=== PATIENT | female | born 1950 | race Caucasian/White ===

== ENCOUNTER 2018-05-09 13:26 | Inpatient (IN) | payer MEDICARE, OTHER ==
[~2018-05-09] VITALS: Ht 165.1 cm; Wt 112.7 kg
--- NOTE | ~2018-05-09 | EC ---
PATIENT:EVA SILVER DATE OF SERVICE: 05/11/18 SEX: F MEDICAL RECORD: [id number] DATE OF : 54 LOCATION:D.M2 D.213 AGE OF PATIENT: 67 ADMISSION DATE: 05/11/18 REFERRING PHYSICIAN: INTERPRETING PHYSICIAN: OXANA OLIVARES MD ECHOCARDIOGRAM REPORT ECHO CHARGES 4 ECHO COMPLETE Date: 05/10 CLINICAL DIAGNOSIS: TIA ECHOCARDIOGRAPHIC MEASUREMENTS (adult normal given) AC root (d.<3.7cm) 4.2 cm LV Septum d (<1.2 cm> 1.3 cm Valve Excursion 1.8 cm LV Septum (systole) 1.5 cm Left Atria (s.<4.0cm> 3.1 cm LVPW d(<1.2cm) 1.5 cm RV (d.<2.3cm) cm LVPW (sytole) 1.8 cm LV diastole(<5.6CM) 4.8 cm MV E-F(>70mm/sec) cm LV systole 3.8 cm LVOT Diameter 1.8 cm MV exc.(>10mm) 1.6 cm Est.ejection fraction (50-75%) % DOPPLER: LVIT cm/sec A 41.0 cm/sec E 64.0 cm/sec LA cm/sec RVSP 17 mmHg LVOT 88 cm/sec AOP1/2T m/s Asc. Ao 107 cm/sec RVOT 75 cm/sec RA cm/sec PA 101 cm/sec AV Gradient Peak 4.56 mmHg AV Mean 2.45 mmHg AV Area 1.9 cm MV Gradient Peak 2.87 mmHg MV Mean 1.28 mmHg MV Area cm COMMENTS: Edger Automatic: 2 MICKY RODRIGUEZ Technician Biological Health: 3 Dr. Mc TAPE# PACS Pericardial Effusion N DATE OF SERVICE: ECHOCARDIOGRAM FINDINGS: 1. Left ventricular chamber size is within normal limits. Left ventricular systolic function is normal. Overall ejection fraction is estimated at 60%. 2. Left atrium is within normal limits at 3.1 cm. Right atrium and right ventricular chamber sizes are mildly dilated. 3. Valvular structures have normal structure and motion. ECHOCARDIOGRAM REPORT [id number] EVA SILVER 4. Doppler interrogation reveals no significant valvular insufficiency or stenosis. 5. No evidence of pericardial effusion or left ventricular thrombus. 6. No cardiac source of neurologic emboli. TRANSINT:[id number] Voice Confirmation ID: [id number] DOCUMENT ID: [id number] OXANA OLIVARES MD at 1642 CC: [id number] DICTATION DATE: 05/25/18 1155 PARTY PLAN SALESPERSON: 05/25/18 1307 DIS IN 05/12/18 [place] [id number] [place] [id number]
--- NOTE | ~2018-05-09 | MORECARE ---
CASE MANAGEMENT DISCHARGE SUMMARY PATIENT: EVA SILVER UNIT: [id number] ADM DATE: 05/11/18 AGE: 67 : 52 SEX: F [facility] AUTHOR: CASE, HAIRSPRING TRUING INSPECTOR PHYSICIAN: REFERRING PHYSICIAN: SUDEEP MCCLENDON MD DATE OF SERVICE: 05/11/18 Discharge Plan Patient Name: EVA SILVER Facility: [facility]:[place] : 1950 Planned Disposition: Home Anticipated Discharge Date: 05/12/18 Discharge Date: Expected LOS: 1 Initial Reviewer: [email or web address] Initial Review Date: 05/12/2018 Generated: 05/12/18 2:15 pm Patient Name: EVA SILVER Page [id number] All edits/amendments must be made on the electronic document DICTATION DATE: 05/12/18 1315 CUSTOMS IMPORT SPECIALIST: 05/12/18 1315 RPT#: [id number] [place] DATE: STATUS: ADM IN [facility] [address] [place] [address] END OF REPORT
[~2018-05-09 13:26] MED LIST: AMBIEN10 MG PO; CARAFATE1 G PO; NEXIUM20 MG PO; NORVASC2.5 MG PO; PLAVIX75 MG PO
[2018-05-09 14:46] LABS: ALBUMIN 3.3 g/dL (3.4-5.0); ALKALINE PHOSPHATASE 79 U/L (46-116); ALT (SGPT) 20 U/L (10-68); BILIRUBIN - TOTAL 0.58 mg/dL (0.2-1.3); CALC OSMOLALITY 276 mosm/kg (275-300); CALCIUM 8.6 mg/dL (8.5-10.1); CARBON DIOXIDE 28.3 mmol/L (21.0-32.0); CHLORIDE - SERUM 104 mmol/L (98-107); CREATININE - SERUM 0.8 mg/dL (0.6-1.3); GLUCOSE 101 mg/dL (74-106); POTASSIUM - SERUM 3.7 mmol/L (3.5-5.1); PROTEIN - SERUM 6.6 g/dL (6.4-8.2); SODIUM 138 mmol/L (136-145); UREA NITROGEN 15 mg/dL (7-18); eGFR NON AFRICAN AMERICAN 76 mL/min (90-120)
[2018-05-09 14:50] LABS: BASOPHILS 0.8 % (0-2); EOSINOPHILS 2.9 % (0-7); HEMOGLOBIN 12.5 g/dL (12-16); IMMATURE GRANULOCYTES 0.2 % (0-5); LYMPHOCYTES 27.7 % (15-50); MCH 28.5 pg (26.0-34.0); MCHC 32.9 g/dL (31.0-37.0); MCV 86.8 fL (80.0-100.0); MEAN PLATELET VOLUME 9.3 fL (7.4-10.4); MONOCYTES 6.2 % (2-11); NEUTROPHILS 62.2 % (40-80); PLATELET COUNT 222 10x3/uL (130-400); RBC 4.38 10x6/uL (4.00-5.40); WBC 5.1 10x3/uL (4.8-10.8)
[2018-05-09 14:54] LABS: APTT 27.6 SECONDS (22.8-39.4); INR 1.06 (0.85-1.17); PROTIME 13.4 SECONDS (11.6-15.0)
[2018-05-09 14:58] LABS: THYROID STIMULATING HORMONE 3.06 uIU/mL (0.36-3.74)
[2018-05-09 14:59] LABS: TROPONIN-I < 0.017 ng/mL (0.000-0.060)
[2018-05-09 15:42] LABS: APPEARANCE CLEAR (CLEAR); BILIRUBIN NEGATIVE (NEGATIVE); COLOR YELLOW (YELLOW); GLUCOSE NEGATIVE (NEGATIVE); KETONE NEGATIVE (NEGATIVE); NITRITE NEGATIVE (NEGATIVE); PROTEIN NEGATIVE (NEGATIVE); UROBILINOGEN NORMAL (NORMAL)
[2018-05-09 15:51] LABS: UDS - AMPHET NEGATIVE QUAL (NEGATIVE); UDS - BARB NEGATIVE QUAL (NEGATIVE); UDS - BENZO NEGATIVE QUAL (NEGATIVE); UDS - COCAINE NEGATIVE QUAL (NEGATIVE); UDS - OPIATE POSITIVE QUAL (NEGATIVE); UDS - PCP NEGATIVE QUAL (NEGATIVE); UDS - THC NEGATIVE QUAL (NEGATIVE)
[2018-05-09 20:00] VITALS: BP 123/77
[2018-05-09 22:39] VITALS: BP 128/76
[2018-05-09] MEDS ORDERED: ZOLOFT100 MG PO (22:56)
[2018-05-09] MEDS ORDERED: PAXIL30 MG PO (22:57)
[2018-05-09] MEDS ORDERED: ELAVIL25 MG PO (22:57)
[2018-05-09] MEDS ORDERED: NORCO 7.5/325 T1 TA1 PO (23:02)
[2018-05-10] VITALS (7 sets, daily range): BP systolic 99–144; BP diastolic 47–69; Ht 165.1 cm; Wt 112.7 kg
[2018-05-10] MEDS ORDERED: SYNTHROID150 MCG PO (13:31)
[2018-05-10 16:48] LABS: ERYTHROCYTE SEDIMENTATION RATE 11 mm/hr (0-30)
[2018-05-11 04:30] VITALS: BP 100/66
[2018-05-11 08:55] VITALS: BP 109/71
[2018-05-11 13:25] VITALS: BP 102/67
[2018-05-11 16:11] VITALS: BP 100/69
[2018-05-11 21:54] VITALS: BP 111/75
[2018-05-12 02:13] VITALS: BP 100/65
[2018-05-12 05:26] VITALS: BP 100/62
[2018-05-12 06:24] LABS: BASOPHILS 0.7 % (0-2); EOSINOPHILS 3.9 % (0-7); HEMATOCRIT 35.7 % (36.0-48.0); HEMOGLOBIN 11.7 g/dL (12-16); IMMATURE GRANULOCYTES 0.4 % (0-5); LYMPHOCYTES 33.3 % (15-50); MCH 28.6 pg (26.0-34.0); MCHC 32.8 g/dL (31.0-37.0); MCV 87.3 fL (80.0-100.0); MEAN PLATELET VOLUME 9.4 fL (7.4-10.4); MONOCYTES 6.1 % (2-11); NEUTROPHILS 55.6 % (40-80); PLATELET COUNT 206 10x3/uL (130-400); RBC 4.09 10x6/uL (4.00-5.40); RDW 14.3 % (11.5-14.5); WBC 6.7 10x3/uL (4.8-10.8)
[2018-05-12 06:44] LABS: ANION GAP 9.1 mmol/L (8-16); CALCIUM 8.4 mg/dL (8.5-10.1); CARBON DIOXIDE 27.9 mmol/L (21.0-32.0); CREATININE - SERUM 0.9 mg/dL (0.6-1.3)
[2018-05-12 10:10] VITALS: BP 119/66
[2018-05-12] MEDS ORDERED: CLEOCIN HCL300 MG PO (11:50)
[2018-05-12] MEDS ORDERED: FLORAJEN3 CAPS460 MG PO (11:51)
== END 2018-05-12 13:24 | disposition home or self-care (01) | DRG 74 ==
LOC: D.ER 13:26 → D.M2 20:55 → OBSVTIME 20:55 → D.M2 05-11 12:54
PROVIDERS: Family Medicine; Internal Medicine Nephrology
DX: G51.0 Bell's palsy (principal); K04.7 Periapical abscess without sinus; I10 Essential (primary) hypertension; E03.9 Hypothyroidism, unspecified

== ENCOUNTER 2018-05-16 15:02 | Emergency (ER) | payer MEDICARE, OTHER ==
[~2018-05-16] VITALS: Ht 165.1 cm; Wt 112.3 kg
[~2018-05-16 15:02] MED LIST changes: +CLEOCIN HCL300 MG PO; +ELAVIL25 MG PO; +FLORAJEN3 CAPS460 MG PO; +NORCO 7.5/325 T1 TA1 PO; +PAXIL30 MG PO; +SYNTHROID150 MCG PO; +ZOLOFT100 MG PO
[2018-05-16 15:17] VITALS: Ht 165.1 cm; Wt 112.3 kg
[2018-05-16 15:45] LABS: BASOPHILS 0.8 % (0-2); EOSINOPHILS 3.6 % (0-7); HEMATOCRIT 39.1 % (36.0-48.0); HEMOGLOBIN 12.8 g/dL (12-16); IMMATURE GRANULOCYTES 0.3 % (0-5); LYMPHOCYTES 31.1 % (15-50); MCH 28.3 pg (26.0-34.0); MCHC 32.7 g/dL (31.0-37.0); MCV 86.3 fL (80.0-100.0); MONOCYTES 7.9 % (2-11); NEUTROPHILS 56.3 % (40-80); PLATELET COUNT 243 10x3/uL (130-400); RBC 4.53 10x6/uL (4.00-5.40); RDW 14.2 % (11.5-14.5); WBC 6.3 10x3/uL (4.8-10.8)
[2018-05-16 16:23] LABS: ALBUMIN 3.4 g/dL (3.4-5.0); ANION GAP 9.5 mmol/L (8-16); BILIRUBIN - TOTAL 0.54 mg/dL (0.2-1.3); CALCIUM 8.9 mg/dL (8.5-10.1); CARBON DIOXIDE 28.8 mmol/L (21.0-32.0); CREATININE - SERUM 0.9 mg/dL (0.6-1.3); POTASSIUM - SERUM 4.3 mmol/L (3.5-5.1); PROTEIN - SERUM 7.1 g/dL (6.4-8.2)
[2018-05-16 16:34] LABS: THYROID STIMULATING HORMONE 7.79 uIU/mL (0.36-3.74)
[2018-05-16] MEDS ORDERED: ANAPROX DS550 MG PO (21:52)
[2018-05-16] MEDS ORDERED: HYDROCODONE-APA1 TAB PO (22:48)
[2018-05-16 23:18] VITALS: BP 108/64
== END 2018-05-16 23:18 | disposition home or self-care (01) ==
LOC: D.ER 15:02
PROVIDERS: Family Medicine
DX: S02.5XXA Fracture of tooth (traumatic), initial encounter for closed fracture (principal); X58.XXXA Exposure to other specified factors, initial encounter; Y93.89 Activity, other specified; Y92.019 Unspecified place in single-family (private) house as the place of occurrence of the external cause; K08.89 Other specified disorders of teeth and supporting structures; M54.2 Cervicalgia; Z79.899 Other long term (current) drug therapy

== ENCOUNTER → 2018-12-30 09:20 | Outpatient (CLI) | payer MEDICARE, OTHER ==
[2018-05-16 15:17] VITALS: BMI 41.1
[~2018-12-30 09:20] MED LIST changes: +ANAPROX DS550 MG PO; +HYDROCODONE-APA1 TAB PO
== END | disposition home or self-care (01) ==
LOC: D.RAD 09:20
PROVIDERS: ATTEND Internal Medicine Gastroenterology
DX: R13.10 Dysphagia, unspecified (principal)

== ENCOUNTER → 2019-01-23 12:48 | Outpatient (CLI) | payer MEDICARE, OTHER ==
[2018-05-16 15:17] VITALS: BMI 41.1
== END | disposition home or self-care (01) ==
LOC: D.CT 12:48
PROVIDERS: ATTEND Internal Medicine Gastroenterology
DX: R13.10 Dysphagia, unspecified (principal); R63.4 Abnormal weight loss; E04.1 Nontoxic single thyroid nodule

== ENCOUNTER 2019-03-13 12:57 | Emergency (ER) | payer MEDICARE, OTHER ==
[2019-03-13 13:10] VITALS: BMI 37.3
[2019-03-13 13:38] LABS: BASOPHILS 0.8 % (0-2); EOSINOPHILS 2.9 % (0-7); HEMATOCRIT 38.2 % (36.0-48.0); HEMOGLOBIN 12.3 g/dL (12-16); IMMATURE GRANULOCYTES 0.3 % (0-5); LYMPHOCYTES 26.5 % (15-50); MCH 25.5 pg (26.0-34.0); MCHC 32.2 g/dL (31.0-37.0); MCV 79.3 fL (80.0-100.0); MEAN PLATELET VOLUME 8.8 fL (7.4-10.4); MONOCYTES 6.9 % (2-11); NEUTROPHILS 62.6 % (40-80); PLATELET COUNT 254 10x3/uL (130-400); RBC 4.82 10x6/uL (4.00-5.40); RDW 16.5 % (11.5-14.5); WBC 9.1 10x3/uL (4.8-10.8)
[2019-03-13 13:51] LABS: ALBUMIN 3.5 g/dL (3.4-5.0); ALKALINE PHOSPHATASE 83 U/L (46-116); ALT (SGPT) 19 U/L (10-68); BILIRUBIN - TOTAL 0.49 mg/dL (0.2-1.3); CALC OSMOLALITY 279 mosm/kg (275-300); CALCIUM 8.9 mg/dL (8.5-10.1); CARBON DIOXIDE 28.8 mmol/L (21.0-32.0); CHLORIDE - SERUM 104 mmol/L (98-107); CREATININE - SERUM 0.9 mg/dL (0.6-1.3); GLUCOSE 95 mg/dL (74-106); POTASSIUM - SERUM 3.7 mmol/L (3.5-5.1); SODIUM 140 mmol/L (136-145); UREA NITROGEN 15 mg/dL (7-18); eGFR NON AFRICAN AMERICAN 66 mL/min (90-120)
[2019-03-13 14:02] LABS: CKMB 1.3 U/L (0.0-3.6); CREATINE KINASE 90 UL (21-215); MAGNESIUM - SERUM 1.8 mg/dL (1.8-2.4)
[2019-03-13 14:03] LABS: TROPONIN-I < 0.017 ng/mL (0.000-0.060)
[2019-03-13 14:22] LABS: APTT 28.5 SECONDS (22.8-39.4); INR 1.05 (0.85-1.17); PROTIME 13.2 SECONDS (11.6-15.0)
[2019-03-13 14:50] VITALS: BP 108/67
== END 2019-03-13 15:23 | disposition left against medical advice (07) ==
LOC: D.ER 12:57
PROVIDERS: Emergency Medicine
DX: R07.9 Chest pain, unspecified (principal)

== ENCOUNTER 2019-05-24 11:24 | Emergency (ER) | payer MEDICARE, OTHER ==
[~2019-05-24] VITALS: Ht 165.1 cm; Wt 93.2 kg
[2019-05-24 11:39] VITALS: Ht 165.1 cm; Wt 93.2 kg
[2019-05-24 12:35] LABS: APPEARANCE CLOUDY (CLEAR); BILIRUBIN NEGATIVE (NEGATIVE); COLOR YELLOW (YELLOW); GLUCOSE NEGATIVE (NEGATIVE); KETONE NEGATIVE (NEGATIVE); NITRITE NEGATIVE (NEGATIVE); PROTEIN TRACE mg/dL (NEGATIVE); UROBILINOGEN NORMAL (NORMAL)
[2019-05-24 12:37] LABS: BACTERIA MANY /hpf (NONE SEEN); EPITHELIAL CELLS 0-5 /hpf (0-5); RED CELLS - URINE NONE SEEN /hpf (0-5)
[2019-05-24 12:45] LABS: BASOPHILS 0.4 % (0-2); EOSINOPHILS 3.1 % (0-7); HEMATOCRIT 36.6 % (36.0-48.0); HEMOGLOBIN 12.2 g/dL (12-16); IMMATURE GRANULOCYTES 0.2 % (0-5); LYMPHOCYTES 27.7 % (15-50); MCH 26.5 pg (26.0-34.0); MCHC 33.3 g/dL (31.0-37.0); MCV 79.6 fL (80.0-100.0); MONOCYTES 7.4 % (2-11); NEUTROPHILS 61.2 % (40-80); PLATELET COUNT 243 10x3/uL (130-400); RDW 16.4 % (11.5-14.5); WBC 5.5 10x3/uL (4.8-10.8)
[2019-05-24 13:01] LABS: APTT 28.6 SECONDS (22.8-39.4); INR 1.04 (0.85-1.17); PROTIME 13.1 SECONDS (11.6-15.0)
[2019-05-24 13:03] LABS: ALBUMIN 3.1 g/dL (3.4-5.0); ALKALINE PHOSPHATASE 71 U/L (46-116); ALT (SGPT) 16 U/L (10-68); BILIRUBIN - TOTAL 0.32 mg/dL (0.2-1.3); CALC OSMOLALITY 280 mosm/kg (275-300); CALCIUM 8.9 mg/dL (8.5-10.1); CARBON DIOXIDE 27.4 mmol/L (21.0-32.0); CHLORIDE - SERUM 106 mmol/L (98-107); CREATININE - SERUM 0.8 mg/dL (0.6-1.3); GLUCOSE 90 mg/dL (74-106); POTASSIUM - SERUM 3.8 mmol/L (3.5-5.1); PROTEIN - SERUM 6.3 g/dL (6.4-8.2); SODIUM 141 mmol/L (136-145); UREA NITROGEN 13 mg/dL (7-18); eGFR NON AFRICAN AMERICAN 76 mL/min (90-120)
[2019-05-24 13:13] LABS: AMYLASE - SERUM 33 U/L (25-115); CKMB 0.7 U/L (0.0-3.6); LIPASE 56 U/L (73-393); TROPONIN-I < 0.017 ng/mL (0.000-0.060)
[2019-05-24 15:24] LABS: CKMB 0.5 U/L (0.0-3.6); CREATINE KINASE 45 UL (21-215)
[2019-05-24 15:27] LABS: TROPONIN-I < 0.017 ng/mL (0.000-0.060)
[2019-05-24] MEDS ORDERED: MACROBID100 MG PO (16:49)
[2019-05-24] MEDS ORDERED: CARAFATE1 G PO (16:51)
[2019-05-24 17:33] VITALS: BP 101/60
== END 2019-05-24 17:34 | disposition home or self-care (01) ==
LOC: D.ER 11:24
PROVIDERS: Family Medicine
DX: K21.9 Gastro-esophageal reflux disease without esophagitis (principal)

== ENCOUNTER → 2019-05-27 07:26 | Outpatient (CLI) | payer MEDICARE, OTHER ==
[2019-05-24 11:39] VITALS: BMI 34.1
[~2019-05-27 07:26] MED LIST changes: +GOLYTELY SOLU4000 ML PO; +KEFLEX500 MG PO; +MACROBID100 MG PO; +ZOFRAN ODT4 MG/UDTAB PO
== END | disposition home or self-care (01) ==
LOC: D.RAD 07:26
PROVIDERS: ATTEND Internal Medicine Gastroenterology
DX: R10.9 Unspecified abdominal pain (principal)

== ENCOUNTER 2019-05-27 08:15 | Emergency (ER) | payer MEDICARE, OTHER ==
[~2019-05-27] VITALS: Ht 165.1 cm; Wt 93.2 kg
[~2019-05-27 08:15] MED LIST changes: -GOLYTELY SOLU4000 ML PO; -KEFLEX500 MG PO; -ZOFRAN ODT4 MG/UDTAB PO
[2019-05-27 08:21] VITALS: Ht 165.1 cm; Wt 93.2 kg
[2019-05-27 08:55] LABS: BASOPHILS 0.8 % (0-2); EOSINOPHILS 3.4 % (0-7); HEMATOCRIT 41.8 % (36.0-48.0); HEMOGLOBIN 13.9 g/dL (12-16); IMMATURE GRANULOCYTES 0.3 % (0-5); LYMPHOCYTES 22.2 % (15-50); MCH 26.3 pg (26.0-34.0); MCHC 33.3 g/dL (31.0-37.0); MEAN PLATELET VOLUME 8.8 fL (7.4-10.4); MONOCYTES 6.8 % (2-11); NEUTROPHILS 66.5 % (40-80); PLATELET COUNT 264 10x3/uL (130-400); RBC 5.29 10x6/uL (4.00-5.40); RDW 16.1 % (11.5-14.5); WBC 7.6 10x3/uL (4.8-10.8)
[2019-05-27 09:11] LABS: ALBUMIN 3.7 g/dL (3.4-5.0); ALKALINE PHOSPHATASE 84 U/L (46-116); ALT (SGPT) 17 U/L (10-68); BILIRUBIN - TOTAL 0.39 mg/dL (0.2-1.3); CALC OSMOLALITY 276 mosm/kg (275-300); CALCIUM 9.9 mg/dL (8.5-10.1); CARBON DIOXIDE 27.5 mmol/L (21.0-32.0); CHLORIDE - SERUM 103 mmol/L (98-107); CREATININE - SERUM 0.9 mg/dL (0.6-1.3); GLUCOSE 119 mg/dL (74-106); PROTEIN - SERUM 7.6 g/dL (6.4-8.2); SODIUM 139 mmol/L (136-145); UREA NITROGEN 8 mg/dL (7-18); eGFR NON AFRICAN AMERICAN 66 mL/min (90-120)
[2019-05-27 09:14] LABS: AMYLASE - SERUM 34 U/L (25-115); LIPASE 57 U/L (73-393)
[2019-05-27 09:15] LABS: TROPONIN-I < 0.017 ng/mL (0.000-0.060)
[2019-05-27 10:41] LABS: APPEARANCE HAZY (CLEAR); BACTERIA FEW /hpf (NONE SEEN); BILIRUBIN NEGATIVE (NEGATIVE); COLOR YELLOW (YELLOW); EPITHELIAL CELLS OCC /hpf (0-5); GLUCOSE NEGATIVE (NEGATIVE); KETONE NEGATIVE (NEGATIVE); MUCUS <1+ /lpf (NONE SEEN); NITRITE NEGATIVE (NEGATIVE); PROTEIN NEGATIVE (NEGATIVE); RED CELLS - URINE RARE /hpf (0-5); SPECIFIC GRAVITY 1.015 (1.005-1.020); UROBILINOGEN NORMAL (NORMAL); WHITE CELLS - URINE 0-5 /hpf (0-5)
[2019-05-27] MEDS ORDERED: ZOFRAN ODT4 MG/UDTAB PO (12:07)
[2019-05-27] MEDS ORDERED: GOLYTELY SOLU4000 ML PO (12:07)
[2019-05-27] MEDS ORDERED: KEFLEX500 MG PO (12:09)
[2019-05-27 12:39] VITALS: BP 101/66
== END 2019-05-27 12:38 | disposition home or self-care (01) ==
LOC: D.ER 08:15
PROVIDERS: Family Medicine
DX: R10.9 Unspecified abdominal pain (principal); K59.00 Constipation, unspecified; R11.2 Nausea with vomiting, unspecified

== ENCOUNTER → 2019-06-04 10:56 | Outpatient (CLI) | payer MEDICARE, OTHER ==
[2019-05-27 08:21] VITALS: BMI 34.1
[~2019-06-04 10:56] MED LIST changes: +GOLYTELY SOLU4000 ML PO; +KEFLEX500 MG PO; +ZOFRAN ODT4 MG/UDTAB PO
== END | disposition home or self-care (01) ==
LOC: D.MRI 10:56
PROVIDERS: ATTEND Family Medicine
DX: M51.16 Intervertebral disc disorders with radiculopathy, lumbar region (principal)

== ENCOUNTER → 2019-06-17 12:09 | Outpatient (CLI) | payer MEDICARE, OTHER ==
[2019-05-27 08:21] VITALS: BMI 34.1
== END | disposition home or self-care (01) ==
LOC: D.MRI 12:00
PROVIDERS: ATTEND Family Medicine
DX: M25.561 Pain in right knee (principal)

== ENCOUNTER → 2019-08-18 08:12 | Outpatient (CLI) | payer MEDICARE, OTHER ==
[2019-05-27 08:21] VITALS: BMI 34.1
== END | disposition home or self-care (01) ==
LOC: D.MRI 08:12
PROVIDERS: ATTEND Nurse Practitioner Family
DX: M51.36 Other intervertebral disc degeneration, lumbar region (principal)

== ENCOUNTER 2019-10-12 08:41 | Outpatient (CLI) | payer MEDICARE, OTHER ==
[~2019-10-12] VITALS: Ht 165.1 cm; Wt 88.5 kg
--- NOTE | ~2019-10-12 | HEMODYNAMI ---
PATIENT:EVA SILVER MEDICAL RECORD: [id number] : 54 LOCATION:[facility] ADMISSION DATE: 10/12/19 Generatedon:10/12/201912:56 Patient name: EVA SILVER Patient #: [id number] SSN: : 1950 Date of study: 10/12/2019 Page: Of Hemodynamic Procedure Report Patient Data Patient Demographics Procedure consent was obtained First Name: EVA Gender: Female Last Name: ADRIANNE : 1950 Middle Initial: PADILLA Age: 68 year(s) Patient #: [id number] Race: Unknown Additional ID: [id number] Contact details [address]: [address] [place] [address] [address] State: [place] City: [place] Zip code: [address] Past Medical History Allergies Allergen Reaction Date Comments Reported Other allergy 03/30/2015 Zoloft (Generic only) Admission Admission Data Admission Date: 10/12/2019 Admission Time: 8:41 Arrival Date: 10/12/2019 Arrival Time: 8:41 Admit Source: Emergency Insurance Payor: Medicare department [facility] #: [id number] Height (in.): 64.96 BSA: 1.95 (m2) Height (cm.): 165 BMI: 32.32 (kg/m2) Weight (lbs.): 194.01 Weight (kg.): 88 Lab Results Lab Result Date: 10/12/2019 Lab Result Time: 0:00 Biochemistry Name Units Result Min Max BUN mg/dl 17 --(---*)-- 7 18 Creatinine mg/dl 0.9 --(-*--)-- 0.6 1.3 eGFR ml/min 66 *-(----)-- 90 120 NONAFRICAN CBC Name Units Result Min Max Hemoglobin g/dl 12.1 *-(----)-- 13.5 17.5 Procedure Procedure Types Cath Procedure Diagnostic Procedure [facility] w/Coronaries Procedure Description Procedure Date Procedure Date: 10/12/2019 Procedure Start Time: 12:47 Procedure End Time: 12:55 Procedure Staff Name Function David Montez MD Performing Physician Marla Bui RT Monitor Karlene Luna RT Scrub Mir Queen RN Nurse Procedure Data Cath Procedure Fluoroscopy Diagnostic fluoroscopy Total fluoroscopy Time: 0.8 time: 0.8 min min Diagnostic fluoroscopy Total fluoroscopy dose: 290 dose: 290 mGy mGy Contrast Material Contrast Material Type Amount (ml) Isovue 300 54 Entry Location Entry Primary Successful Side Size Upsize Upsize Entry Closure Succes sful Closure Location (Fr) 1 (Fr) 2 (Fr) Remarks Device Remarks Femoral Right 5 Fr Exoseal artery Estimated blood loss: 5 ml Diagnostic catheters Device Type Used For End Catheter Placement MULTIPACK Pigtail 5 Fr Procedure catheter MULTIPACK JL 4.0 5Fr Procedure catheter MULTIPACK 3DRC 5Fr Procedure catheter Procedure Complications No complications Procedure Medications Medication Administration Route Dosage 0.9% NaCl I.V. 100 ml/hr Oxygen etCO2 Nasal cannula 2 l/min Heparin Flush Bag added to field 2 bags (1000units/500ml NS) Lidocaine 2% added to field 20 Benadryl I.V. 50 mg Versed I.V. 2 mg Fentanyl I.V. 100 mcg Hemodynamics Rest BSA: 1.95 (m2) HGB: 12.1 (g/dl) O2 Consumption: Estimated: 184.41 (ml/min) O2 Co nsumption indexed: Estimated:94.57 (ml/min/m) Heart Rate: 74 (bpm) Snapshots Pre Cath Intra NCS Post Cath Vital Signs Time Heart Resp SPO2 etCO2 NIBP (mmHg) Rhythm Pain Sedation Rate (ipm) (%) (mmHg) Status Level (bpm) 12:39:37 71 13 100 36 108/77(96) NSR 0 (11) 10(A) , No pain 12:43:45 76 10 98 42 99/68(79) NSR 0 (11) 10(A) , No pain 12:47:44 84 12 99 24.7 113/79(101) NSR 0 (11) 10(A) , No pain 12:51:50 88 18 96 42 107/76(87) NSR 0 (11) 10(A) , No pain Medications Time Medication Route Dose Verified Delivered Reason Notes Eff ectiveness by by 12:43:12 0.9% NaCl I.V. 100 Mir Mir Per ml/hr Bernice Queen physician RN RN 12:43:21 Oxygen etCO2 2 Mir Mir for low 02 Nasal l/min Lorcarmine Queen sats cannula RN RN 12:43:31 Heparin Flush added 2 Mir Mir used for Bag to bags Bernice Queen procedure (1000units/500ml field RN RN NS) 12:43:40 Lidocaine 2% added 20ml Mir Mir for local to vial Lorigan Lorigan anesthetic field RN RN 12:43:50 Benadryl I.V. 50 mg Mir Mir Per Bernice Queen physician RN RN 12:49:11 Versed I.V. 2 mg Mir Mir for Lorigan Lorigan sedation RN RN 12:49:18 Fentanyl I.V. 100 Mir Mir for mcg Lorigan Lorigan sedation RN tank truck driver Log Time Note 12:13:52 Diagnostic Cath Status : Urgent 12:14:27 Lab Result : eGFR NONAFRICAN 66 ml/min 12:14:27 Lab Result : Hemoglobin 12.1 g/dl 12:14:27 Lab Result : BUN 17 mg/dl 12:14:27 Lab Result : Creatinine 0.9 mg/dl 12:14:43 Admit Source: Emergency department 12:14:44 Arrival Date: 10/12/2019 8:41:00 AM 12:15:19 Insurance Payor : Medicare 12:15:27 Patient Height : 64.96 inches 12:15:33 Patient Weight : 194.01 lbs 12:20:00 Procedure Status Urgent Heart Cath (IP). 12:20:02 Mir Queen RN sent for patient. Start room use. 12:20:03 Time tracking: Regular hours (M-F 7:00 - 5:00) 12:20:07 Plan of Care:Hemodynamics will remain stable., Cardiac rhythm will remain stable., Comfort level will be maintained., Respiratory function will remain adequate., Patient/ family verbilizes understanding of procedure., Procedure tolerated without complication., Recovers from procedure without complications.. 12:26:10 Patient received from ED to [facility] 2 Alert and oriented. Tansferred to table in Supine position. 12:26:12 Signed procedure consent form obtained from patient. 12:26:13 Warm blankets applied, and bárbara hugger turned on for patient comfort. 12:26:14 Correct patient and procedure confirmed by team. 12:26:14 ECG and BP/O2 sat monitors applied to patient. 12:38:37 Vital chart was started 12:38:38 Baseline sample Acquired. 12:43:12 0.9% NaCl 100 ml/hr I.V. was administered by Mir Qeuen RN; Per physician; Verbal order read back and verified. 12:43:21 Oxygen 2 l/min etCO2 Nasal cannula was administered by Mir Queen RN; for low 02 sats; Verbal order read back and verified. 12:43:31 Heparin Flush Bag (1000units/500ml NS) 2 bags added to field was administered by Mir Queen RN; used for procedure; Verbal order read back and verified. 12:43:40 Lidocaine 2% 20ml vial added to field was administered by Mir Queen RN; for local anesthetic; Verbal order read back and verified. 12:43:50 Benadryl 50 mg I.V. was administered by Mir Queen RN; Per physician; Verbal order read back and verified. 12:44:08 Baseline sample Acquired. 12:44:12 Rhythm: sinus rhythm 12:44:14 Full Disclosure recording started 12:44:24 H&P Date Dictated: 10/12/2019 Emergent; H&P N/A. 12:44:26 Pre-procedure instructions explained to patient. 12:44:28 Family in waiting room. 12:44:30 Patient NPO since Midnight. 12:44:36 Was the patient premedicated? Yes 12:44:40 Is patient on blood thinner?No 12:44:43 Patient diabetic? No. 12:44:53 Previous problem with sedation/anesthesia? Yes angry 12:45:15 Snore? No 12:45:26 Dentures? No out 12:45:35 Patient pain scale 0/10 ?. 12:45:45 IV patent on arrival in left forearm with 0.9% NaCl at [facility]. 12:45:49 Lab results completed and on chart. 12:45:56 Stress Test: no; abnormal ? 12:46:01 Risk of Mortality: 1.1 12:46:04 Risk of blood transfusion: .8 12:46:07 Risk of ISHA: 7.0 12:46:10 Right groin area was prepped with chlora-prep and draped in sterile fashion 12:46:11 Alarms reviewed by R. N. 12:46:12 Sharps counted by scrub and verified by R.N. 12:46:13 Physician paged 12:46:14 Physician arrived 12:46:15 --------ALL STOP TIME OUT------ 12:46:15 Final Timeout: patient, procedure, and site verified with staff and physician. All members of the team are in agreement. 12:46:18 Right groin site verified by team. 12:46:23 Fire Safety Assessment: A--An alcohol-based skin anteseptic being used preoperatively., C--Open oxygen or nitrous oxide is being used., D--An ESU, laser, or fiber-optic light is being used. 12:46:26 Physical assessment completed. ASA score P 3 - A patient with severe systemic disease as per David Montez MD. 12:47:18 2) 60-89 Mildly reduced kidney function, and other findings (as for stage 1) point to kidney disease. 12:47:22 Maximum allowable contrast dose (3.7 X eGFR X 0.75)183 ml. 12:47:26 Sedation plan: IV Moderate Sedation Medication:Versed, Fentanyl 12:47:33 Use device set Femoral Dx 12:47:37 Procedure started. 12:47:57 Local anesthetic to right femoral artery with Lidocaine 2% by David Montez MD.INITIAL ACCESS ONLY 12:47:58 ACIST Syringe (64700) opened to sterile field. 12:47:58 Bag Decanter (2002S) opened to sterile field. 12:47:59 Medline Cath Pack ([id number]) opened to sterile field. 12:48:00 ACIST Hand Control (12454) opened to sterile field. 12:48:00 ACIST Manifold (98488) opened to sterile field. 12:48:01 DIAGNOSTIC Multipack 5Fr catheter set (CO3012) opened to sterile field. 12:48:02 Tegaderm 4 x 4 (1626W) opened to sterile field. 12:48:03 SHEATH 5FR Bokoshe (BOY112) opened to sterile field. 12:48:04 EMERALD Guide Wire (443-471) opened to sterile field. 12:49:11 Versed 2 mg I.V. was administered by Mir Queen RN; for sedation; Verbal order read back and verified. 12:49:13 A 5 Fr sheath was inserted into the Right Femoral artery 12:49:18 Fentanyl 100 mcg I.V. was administered by Mir Queen RN; for sedation; Verbal order read back and verified. 12:49:25 J wire advanced. 12:51:32 A MULTIPACK Pigtail 5 Fr catheter was advanced over the wire and used for Procedure. 12:51:50 EF : 55 % 12:51:54 Catheter removed. 12:52:00 A MULTIPACK JL 4.0 5Fr catheter was advanced over the wire and used for Procedure. 12:52:05 LCA angiography performed. 12:52:09 Catheter removed. 12:52:16 A MULTIPACK 3DRC 5Fr catheter was advanced over the wire and used for Procedure. 12:52:23 RCA angiography performed. 12:52:25 Catheter removed. 12:52:28 EXOSEAL 5Fr (EX500) opened to sterile field. 12:52:55 Sheath removed intact; hemostasis achieved with Exoseal to the Right Femoral artery. 12:52:58 Procedure ended.(Physican Out) 12:53:10 Fluoroscopy time 00.80 minutes. 12:53:21 Flurop Dose total: 290 12:53:21 Fluoroscopy dose: 290 mGy 12:53:26 Dose Area Product 96326 mGy/cm. 12:53:30 Contrast amount:Isovue 300 54ml. 12:53:37 Maximum allowable dose exceeded? No. 12:53:40 Sharps counted by scrub and verified by R.N. 12:53:44 Insertion/operative site no bleeding no hematoma. 12:53:58 Post right femoral artery:stable 12:53:59 Post Procedure Pulses reassessed and unchanged 12:54:03 Post-procedure physical assessment completed. ASA score P 3 - A patient with severe systemic disease as per David Montez MD. 12:54:06 Post procedure rhythm: unchanged. 12:54:08 Estimated blood loss: 5 ml 12:54:10 Post procedure instruction explained to patient.Patient verbalizes understanding. 12:54:31 Procedure and supply charges have been captured, reviewed, submitted and are correct. 12:54:51 Procedure Complication : No complications 12:54:54 Vital chart was stopped 12:54:59 [facility] Findings: mild to moderate CAD (<70%) 12:55:00 See physician's report for complete and final results. 12:55:04 Report given to Pre/Post Procedure Room. 12:55:07 Patient transfered to Pre/Post Procedure Room with Stretcher. 12:55:09 Procedure ended. 12:55:09 Full Disclosure recording stopped 12:55:15 End room use (Document Last) 12:55:30 End room use (Document Last) 12:55:50 End room use (Document Last) Device Usage Item Name Manufacture Quantity Catalog Hospital Part Current Minimal L ot# / Number Charge Number Stock Stock Serial# Code ACIST Acist 1 12140 275141 187656 420984 20 Syringe Medical (08142) Systems Inc Bag Microtek 1 261970 48739 319427 5 Decanter Medical Inc. () Medline Medline 1 [id number] 115839 50817 575331 5 Cath Pack ([id number]) ACIST Hand Acist 1 85334 180581 588794 505911 5 Control Medical (74667) Systems Inc ACIST Acist 1 79011 466849 169814 597286 5 Manifold Medical (29697) Systems Inc DIAGNOSTIC Cardinal 1 [id number] 452134 67106 948399 30 Multipack Health 5Fr catheter set (YO8546) Tegaderm 4 3M 1 1626W 712413 599212 399813 5 x 4 (1626W) SHEATH 5FR Terumo 1 JJR818 502188 912509 966483 5 Bokoshe (CMH054) EMERALD Cardinal 1 502455 621885 712065 114142 5 Guide Wire Health (502455) MULTIPACK Cardinal 1 447070 5 Pigtail 5 Health Fr catheter MULTIPACK Cardinal 1 053683 5 JL 4.0 5Fr Health catheter MULTIPACK Cardinal 1 809761 5 3DRC 5Fr Health catheter EXOSEAL 5Fr Cardinal 1 EX500 620924 596985 537473 10 (EX500) Health Signature Audit [place] Stage Time Signature Unsigned Intra-Procedure 10/12/2019 Marla Bui 12:55:30 PM RT(R) Intra-Procedure 10/12/2019 David Montez 12:55:50 PM Intra-Procedure 10/12/2019 Mir 12:56:27 PM Lorigan RN Signatures Performing Physician : Signature : David Montez MD Date : Time : Monitor : Marla Hao Signature : RT Date : Time : Nurse : Mir Lorigan Signature : RN Date : Time : [place] [address] [place] [address]
--- NOTE | ~2019-10-12 | OP ---
PATIENT NAME: EVA SILVER MEDICAL RECORD: [id number] :54 LOCATION:[facility] ADMISSION DATE: SURGEON: OXANA OLIVARES MD DATE OF OPERATION: 10/12/2019 PROCEDURES: 1. Left heart catheterization. 2. Selective coronary angiography. 3. Left ventriculogram. INDICATION: Chest pain compatible with angina. PROCEDURE IN DETAIL: After informed consent was obtained and after a detailed description of the risks, benefits as well as alternative therapies. The patient elected to proceed with angiogram and heart catheterization. The right femoral area was prepped and draped in normal sterile fashion. The right femoral artery was cannulated via modified Seldinger technique with placement of 5-Nepalese sheath. All catheters exchanged through this sheath. FINDINGS: Left ventriculogram was performed in standard 30-degree [place] view, reveals good cardiac wall motion, ejection fraction estimated at 55% to 60%. SELECTIVE CORONARY ANGIOGRAPHY: Left main, left anterior descending, left circumflex, right coronary artery have only mild irregularities, no flow-limiting stenosis. No stenosis greater than 20%. OVERALL IMPRESSION: Minimal coronary artery disease is present. No flow-limiting stenosis. Chest pain is noncardiac in etiology. TRANSINT:[id number] Voice Confirmation ID: [id number] DOCUMENT ID: [id number] OXANA OLIVARES MD CC: [id number] DICTATION DATE: 10/12/19 1257 ELECTROLOGIST: 10/12/19 1712 [facility] [address] [place] [address]
[2019-10-12 09:16] LABS: BASOPHILS 0.8 % (0-2); HEMATOCRIT 37.6 % (36.0-48.0); HEMOGLOBIN 12.1 g/dL (12-16); IMMATURE GRANULOCYTES 0.3 % (0-5); MCH 27.2 pg (26.0-34.0); MCHC 32.2 g/dL (31.0-37.0); MCV 84.5 fL (80.0-100.0); MEAN PLATELET VOLUME 8.7 fL (7.4-10.4); MONOCYTES 8.5 % (2-11); NEUTROPHILS 61.4 % (40-80); PLATELET COUNT 253 10x3/uL (130-400); RBC 4.45 10x6/uL (4.00-5.40); RDW 15.4 % (11.5-14.5); WBC 6.5 10x3/uL (4.8-10.8)
[2019-10-12 09:27] LABS: APTT 27.5 SECONDS (22.8-39.4); CALC OSMOLALITY 278 mosm/kg (275-300); CALCIUM 9.2 mg/dL (8.5-10.1); CARBON DIOXIDE 29.3 mmol/L (21.0-32.0); CHLORIDE - SERUM 106 mmol/L (98-107); CREATININE - SERUM 0.9 mg/dL (0.6-1.3); GLUCOSE 80 mg/dL (74-106); INR 1.01 (0.85-1.17); POTASSIUM - SERUM 4.2 mmol/L (3.5-5.1); PROTIME 12.8 SECONDS (11.6-15.0); SODIUM 139 mmol/L (136-145); UREA NITROGEN 17 mg/dL (7-18); eGFR NON AFRICAN AMERICAN 66 mL/min (90-120)
[2019-10-12 09:44] LABS: ALBUMIN 3.4 g/dL (3.4-5.0); ALKALINE PHOSPHATASE 90 U/L (46-116); ALT (SGPT) 18 U/L (10-68); CKMB 0.8 U/L (0.0-3.6); CREATINE KINASE 61 UL (21-215); PROTEIN - SERUM 7.1 g/dL (6.4-8.2)
[2019-10-12 09:46] LABS: TROPONIN-I < 0.017 ng/mL (0.000-0.060)
[2019-10-12 10:06] VITALS: Ht 165.1 cm; Wt 88.5 kg
--- NOTE | 2019-10-12 11:13 | HP ---
PATIENT: EVA SILVER MEDICAL RECORD: [id number] ACCOUNT: [id number] LOCATION:[facility] : 54 ADMISSION DATE: 10/12/19 PCP: ASHLEIGH VALENTE HISTORY AND PHYSICAL EXAMINATION DIAGNOSES: 1. Unstable angina. 2. Coronary artery disease. 3. Hypertension. 4. Hyperlipidemia. 5. Family history of premature coronary artery disease. HISTORY OF PRESENT ILLNESS: Mrs. Silver is a 68-year-old female with a history of coronary artery disease. She underwent cardiac catheterization, she thinks approximately 7 years ago and was told that she had disease, but not enough for an intervention. Over the past month, she has increasing episodes of chest pain, very compatible with angina, pressure, dull, aching, band-like sensation around her chest. It is worsened dramatically over the past 48 hours. She presents to the Emergency Room. Her EKG is with nonspecific ST-T abnormalities. She does continue to have the discomfort today at rest. She does have a history of hypertension, on no medication. She has a history of hyperlipidemia, on no medications and a family history of coronary artery disease. Currently, her pulse is in the 80s, systolic blood pressures in the 120s. Her pain is at a level of 5/10. She does have a history of GERD. Her pain now is not like her GERD pain. PHYSICAL EXAMINATION: CONSTITUTIONAL/GENERAL APPEARANCE: Well nourished, well developed, appears stated age. EYES: Lids and conjunctivae noninjected. No discharge. No pallor. ENT: Lips within normal limit. No cyanosis. No pallor. NECK: Carotid arteries, bilateral normal upstroke. No bruits. No thrills. No jugular venous pressure or distention. CERVICAL LYMPH NODES: Nontender. Nonenlarged. THYROID: Not enlarged. No nodules. CARDIOVASCULAR: Precordial exam, nondisplaced. No heaves or pericardial thrills. Rate and rhythm, regular. Heart sounds, normal S1, normal S2. No S3, no gallop, no rub. Systolic murmur, not heard. Diastolic murmur, not heard. RESPIRATORY: Respiratory effort, unlabored. Normal curvature. No thoracic deformity. No chest wall tenderness. Percussion, resonant. Auscultation, clear. No wheezes, no rales, no rhonchi. ABDOMEN: Soft, nondistended, nontender. No abdominal pain, no vomiting and normal appetite. MUSCULOSKELETAL: No joint tenderness, normal gait, normal tone. SKIN: Warm and dry. OVERALL IMPRESSION: Chest pain compatible with angina in an increasing unstable fashion. We will proceed with coronary angiography later today. Optimize her medical management at this time. TRANSINT:[id number] Voice Confirmation ID: [id number] DOCUMENT ID: [id number] HISTORY AND PHYSICAL [id number] EVA SILVER, OXANA BARLOW at 1113 CC: [id number] DICTATION DATE: 10/12/19 1008 PEDIATRIC SOCIAL WORKER: 10/12/19 1037 REG [facility] [address] [place] [address]
[2019-10-12 12:23] VITALS: BP 112/69
--- NOTE | 2019-10-12 13:10 | NUR ---
PT RECEIVED FROM ENROLLMENT MANAGEMENT MANAGER FOR RECOVERY. PT AWAKE BUT DROWSY, SHE DENIES PAIN OR DISCOMFORT. IV PATENT INFUSING VIA ORDERS. PT PLACED ON CARDIAC MONITORS. HR NSR RATE 79, BP 106/67, RR 15, SAT 96 ON ROOM AIR. R GROIN W 5FR EXOCELE, DRESSING CDI NO BLEEDING OR S/S HEMATOMA NOTED. LEG PINK AND WARM, PEDAL PULSES PALPABLE. PT INSTRUCTED TO KEEP HEAD ON PILLOW AND LEG STRAIGHT, SHE VERBALIZED UNDERSTANDING. CALL LIGHT IN REACH.
--- NOTE | 2019-10-12 13:30 | NUR ---
PT RESTING W/O COMPLAINTS. R GROIN SOFT, DRESSING CDI NO BLEEDING OR S/S HEMATOMA NOTED. PEDAL PULSES PALPABLE. VSS. CALL LIGHT IN REACH
--- NOTE | 2019-10-12 14:15 | NUR ---
HOB ELEVATED SLIGHTLY, SANDWICH TRAY AND DRINK SERVED. GROIN SOFT, DRESSING REMAINS CDI NO BLEEDING OR S/S HEMATOMA NOTED. VSS. CALL LIGHT IN REACH.
--- NOTE | 2019-10-12 14:45 | NUR ---
DISCHARGE INSTRUCTIONS REVIEWED W PT, SHE VERBALIZED UNDERSTANDING. IV REMOVED W CATH INTACT. MONITORS REMOVED. R GROIN SOFT, NO S/S HEMATMOMA NOTED. PT WAITING ON TO BRINK CLOTHES FOR DISCHARGE.
--- NOTE | 2019-10-12 15:05 | NUR ---
PT AMBULATED TO BR, VOIDING W/O DIFFICULITY. 1510 PT DISCHARGED TO WAITING IN PRIVATE VEHICLE. PT HAD ALL BELONGINGS AND DISCHARGE INFORMATION.
== END 2019-10-12 16:00 | disposition home or self-care (01) ==
LOC: D.ER 08:41 → D.OPS 08:41 → EDSTATUS 10:42 → D.CLR 13:05 → D.OPS 16:00
PROVIDERS: Family Medicine; ATTEND Internal Medicine Interventional Cardiology
DX: R07.9 Chest pain, unspecified (principal); I25.110 Atherosclerotic heart disease of native coronary artery with unstable angina pectoris; I10 Essential (primary) hypertension; E78.5 Hyperlipidemia, unspecified

== ENCOUNTER → 2019-12-16 10:09 | Outpatient (CLI) | payer MEDICARE, OTHER ==
[2019-10-12 10:06] VITALS: BMI 34.1
== END | disposition home or self-care (01) ==
LOC: D.CT 10:00
PROVIDERS: ATTEND Internal Medicine Gastroenterology
DX: R63.4 Abnormal weight loss (principal); R10.9 Unspecified abdominal pain

== ENCOUNTER → 2020-05-10 12:41 | Outpatient (CLI) | payer MEDICARE, OTHER ==
[2019-10-12 10:06] VITALS: BMI 34.1
== END | disposition home or self-care (01) ==
LOC: D.MRI 12:41
PROVIDERS: ATTEND Clinical Nurse Specialist Family Health
DX: M25.561 Pain in right knee (principal)

== ENCOUNTER 2020-05-24 21:37 | Emergency (ER) | payer MEDICARE, OTHER ==
[~2020-05-24] VITALS: Ht 165.1 cm; Wt 84.1 kg
[2020-05-24 21:51] VITALS: Ht 165.1 cm; Wt 84.1 kg
[2020-05-24] MEDS ORDERED: ELAVIL75 MG PO (21:56)
[2020-05-24] MEDS ORDERED: GABAPENTIN100 MG PO (21:56)
[2020-05-24 22:35] LABS: EOSINOPHILS 3.5 % (0-7); HEMATOCRIT 34.8 % (36.0-48.0); HEMOGLOBIN 11.1 g/dL (12-16); IMMATURE GRANULOCYTES 0.3 % (0-5); LYMPHOCYTES 37.3 % (15-50); MCH 24.9 pg (26.0-34.0); MCHC 31.9 g/dL (31.0-37.0); MCV 78.2 fL (80.0-100.0); MEAN PLATELET VOLUME 8.5 fL (7.4-10.4); MONOCYTES 7.8 % (2-11); NEUTROPHILS 50.1 % (40-80); PLATELET COUNT 281 10x3/uL (130-400); RBC 4.45 10x6/uL (4.00-5.40); RDW 15.2 % (11.5-14.5)
[2020-05-24 22:52] LABS: CALC OSMOLALITY 268 mosm/kg (275-300); CALCIUM 8.9 mg/dL (8.5-10.1); CARBON DIOXIDE 27.5 mmol/L (21.0-32.0); CHLORIDE - SERUM 101 mmol/L (98-107); CREATININE - SERUM 0.9 mg/dL (0.6-1.3); POTASSIUM - SERUM 3.4 mmol/L (3.5-5.1); SODIUM 136 mmol/L (136-145); UREA NITROGEN 11 mg/dL (7-18); eGFR NON AFRICAN AMERICAN 66 mL/min (90-120)
[2020-05-24 22:53] LABS: GLUCOSE 68 mg/dL (74-106)
[2020-05-24 22:59] LABS: ALBUMIN 3.6 g/dL (3.4-5.0); ALKALINE PHOSPHATASE 93 U/L (30-120); ALT (SGPT) 21 U/L (10-68); BILIRUBIN - TOTAL 0.51 mg/dL (0.2-1.3); C-REACTIVE PROTEIN < 0.2 mg/dL (0.0-0.9); PROTEIN - SERUM 6.9 g/dL (6.4-8.2)
[2020-05-25 00:30] VITALS: BP 140/75
== END 2020-05-25 00:31 | disposition home or self-care (01) ==
LOC: D.ER 21:37
PROVIDERS: Family Medicine
DX: M25.561 Pain in right knee (principal); I10 Essential (primary) hypertension; G89.29 Other chronic pain

== ENCOUNTER 2020-06-05 17:18 | Observation (INO) | payer MEDICARE, OTHER ==
[~2020-06-05 17:18] MED LIST changes: +ELAVIL75 MG PO; +GABAPENTIN100 MG PO; +HYDROCODON-ACE1 EA10 PO; -NORCO 7.5/325 T1 TA1 PO
[2020-06-05 17:52] LABS: EOSINOPHILS 2.9 % (0-7); HEMATOCRIT 36.9 % (36.0-48.0); HEMOGLOBIN 11.6 g/dL (12-16); IMMATURE GRANULOCYTES 0.3 % (0-5); LYMPHOCYTES 20.8 % (15-50); MCH 24.9 pg (26.0-34.0); MCHC 31.4 g/dL (31.0-37.0); MCV 79.2 fL (80.0-100.0); MEAN PLATELET VOLUME 8.6 fL (7.4-10.4); MONOCYTES 4.4 % (2-11); NEUTROPHILS 70.6 % (40-80); PLATELET COUNT 291 10x3/uL (130-400); RBC 4.66 10x6/uL (4.00-5.40); RDW 15.9 % (11.5-14.5)
[2020-06-05 18:02] LABS: CALC OSMOLALITY 273 mosm/kg (275-300); CALCIUM 8.5 mg/dL (8.5-10.1); CARBON DIOXIDE 22.4 mmol/L (21.0-32.0); CHLORIDE - SERUM 102 mmol/L (98-107); POTASSIUM - SERUM 4.3 mmol/L (3.5-5.1); SODIUM 134 mmol/L (136-145); UREA NITROGEN 13 mg/dL (7-18); eGFR NON AFRICAN AMERICAN 58 mL/min (90-120)
[2020-06-05 18:04] LABS: GLUCOSE 202 mg/dL (74-106)
[2020-06-05 18:16] LABS: ALBUMIN 3.3 g/dL (3.4-5.0); ALKALINE PHOSPHATASE 102 U/L (30-120); ALT (SGPT) 21 U/L (10-68); BILIRUBIN - TOTAL 0.51 mg/dL (0.2-1.3); CKMB 0.7 U/L (0.0-3.6); CREATINE KINASE 57 UL (21-215); PRO BNP 96 pg/mL (0-125); PROTEIN - SERUM 6.5 g/dL (6.4-8.2)
[2020-06-05 18:18] LABS: TROPONIN-I < 0.017 ng/mL (0.000-0.060)
[2020-06-05 19:56] LABS: AMYLASE - SERUM 44 U/L (25-115); LIPASE 69 U/L (73-393)
[2020-06-05 20:42] VITALS: BP 131/83
[2020-06-05 22:23] VITALS: BP 128/90
[2020-06-06 00:29] LABS: CKMB 0.8 U/L (0.0-3.6); CREATINE KINASE 56 UL (21-215)
[2020-06-06 00:30] LABS: TROPONIN-I < 0.017 ng/mL (0.000-0.060)
[2020-06-06 02:48] VITALS: BP 113/69
[2020-06-06 04:48] LABS: BASOPHILS 1.6 % (0-2); EOSINOPHILS 5.9 % (0-7); HEMATOCRIT 34.9 % (36.0-48.0); HEMOGLOBIN 10.6 g/dL (12-16); IMMATURE GRANULOCYTES 0.2 % (0-5); LYMPHOCYTES 41.2 % (15-50); MCH 24.2 pg (26.0-34.0); MCHC 30.4 g/dL (31.0-37.0); MCV 79.7 fL (80.0-100.0); MONOCYTES 7.5 % (2-11); NEUTROPHILS 43.6 % (40-80); PLATELET COUNT 279 10x3/uL (130-400); RBC 4.38 10x6/uL (4.00-5.40); WBC 6.2 10x3/uL (4.8-10.8)
[2020-06-06 05:03] LABS: ALBUMIN 3.1 g/dL (3.4-5.0); ALKALINE PHOSPHATASE 88 U/L (30-120); ALT (SGPT) 17 U/L (10-68); BILIRUBIN - TOTAL 0.42 mg/dL (0.2-1.3); CALCIUM 8.7 mg/dL (8.5-10.1); CHLORIDE - SERUM 105 mmol/L (98-107); CREATINE KINASE 61 UL (21-215); CREATININE - SERUM 0.9 mg/dL (0.6-1.3); POTASSIUM - SERUM 3.9 mmol/L (3.5-5.1); PROTEIN - SERUM 6.2 g/dL (6.4-8.2); SODIUM 139 mmol/L (136-145); UREA NITROGEN 13 mg/dL (7-18); eGFR NON AFRICAN AMERICAN 66 mL/min (90-120)
[2020-06-06 05:04] LABS: CALC OSMOLALITY 276 mosm/kg (275-300); CARBON DIOXIDE 30.8 mmol/L (21.0-32.0); GLUCOSE 79 mg/dL (74-106); TROPONIN-I < 0.017 ng/mL (0.000-0.060)
[2020-06-06 06:43] VITALS: BP 107/67
[2020-06-06 10:36] LABS: CKMB 0.8 U/L (0.0-3.6); CREATINE KINASE 58 UL (21-215)
[2020-06-06 10:37] LABS: TROPONIN-I < 0.017 ng/mL (0.000-0.060)
[2020-06-06 16:31] VITALS: BP 108/70
[2020-06-06 17:44] LABS: BASOPHILS 1.1 % (0-2); EOSINOPHILS 5.7 % (0-7); HEMATOCRIT 35.3 % (36.0-48.0); HEMOGLOBIN 10.8 g/dL (12-16); IMMATURE GRANULOCYTES 0.2 % (0-5); LYMPHOCYTES 38.3 % (15-50); MCH 24.8 pg (26.0-34.0); MCHC 30.6 g/dL (31.0-37.0); MCV 81.1 fL (80.0-100.0); MEAN PLATELET VOLUME 9.1 fL (7.4-10.4); MONOCYTES 5.7 % (2-11); PLATELET COUNT 290 10x3/uL (130-400); RBC 4.35 10x6/uL (4.00-5.40); RDW 16.3 % (11.5-14.5); WBC 5.3 10x3/uL (4.8-10.8)
[2020-06-06] MEDS ORDERED: PAXIL30 MG PO (18:36)
--- NOTE | 2020-06-06 19:30 | NUR ---
RECEIVED BEDSIDE REPORT. ROUNDING COMPLETE. PATIENT IS ALERT AND ORIENTED, RESTING COMFORTABLY IN BED. RESPIRATIONS ARE EVEN AND UNLABORED. NO S/S OF DISTRESS. NO C/O PAIN. CALL LIGHT WITHIN REACH. WILL CPOC.
[2020-06-06 21:40] VITALS: BP 115/77
[2020-06-07] VITALS: BP 132/77
[2020-06-07 06:05] LABS: % SATURATION 7 % (15-55); IRON 28 ug/dl (35-150); TOTAL IRON BIND CAPACITY 385 ug/dl (260-445); UNSAT IRON BIND CAPACITY 357 ug/dl (150-375)
[2020-06-07 08:00] VITALS: BP 140/92
[2020-06-07 12:03] VITALS: BP 124/87
--- NOTE | 2020-06-07 16:10 | NUR ---
SPOKE WITH WHO GAVE TELEPHONE ORDER FOR DISCHARGE HOME. WILL DISCHARGE PT AND PLACE ORDER.
--- NOTE | 2020-06-07 17:11 | NUR ---
PT DISCHARGED HOME VIA WHEELCHAIR WITH FAMILY. PIV REMOVED WITH CATHETER TIP FULLY INTACT. PT SIGNED PROPER DISCHARGE INSTRUCTIONS AND REMOVED ALL VALUABLES FROM THE ROOM. TELEMETRY REMOVED AND RETURNED.
== END 2020-06-07 17:12 | disposition home or self-care (01) ==
LOC: D.ER 17:18 → D.M2 19:59 → OBSVTIME 19:59 → D.EDHOLD 19:59 → D.M2 06-06 16:38
PROVIDERS: Family Medicine; Internal Medicine Gastroenterology; ADMIT Family Medicine; ATTEND Family Medicine
DX: R07.9 Chest pain, unspecified (principal); R11.2 Nausea with vomiting, unspecified; R10.9 Unspecified abdominal pain; K21.9 Gastro-esophageal reflux disease without esophagitis; D50.9 Iron deficiency anemia, unspecified; I10 Essential (primary) hypertension; M25.569 Pain in unspecified knee

== ENCOUNTER → 2020-06-27 10:33 | Outpatient (CLI) | payer MEDICARE, OTHER | END | disposition home or self-care (01) | LOC: D.HCCECHO 10:33 | PROVIDERS: ATTEND Internal Medicine Interventional Cardiology | DX: I10 Essential (primary) hypertension (principal) ==

== ENCOUNTER → 2020-12-06 10:10 | Outpatient (CLI) | payer MEDICARE, OTHER ==
[2020-10-18 13:40] VITALS: BMI 30.8
[~2020-12-06 10:10] MED LIST changes: +BENTYL10 MG PO; +PHENERGAN25 M1 PO
[2020-12-06 11:07] LABS: AMYLASE - SERUM 39 U/L (25-115)
[2020-12-06 11:10] LABS: LIPASE 45 U/L (73-393)
== END | disposition home or self-care (01) ==
LOC: D.US 10:00
PROVIDERS: ATTEND Internal Medicine Gastroenterology
DX: R10.13 Epigastric pain (principal); R13.10 Dysphagia, unspecified; R11.10 Vomiting, unspecified

== ENCOUNTER → 2020-12-09 09:20 | Outpatient (CLI) | payer MEDICARE, OTHER ==
[2020-10-18 13:40] VITALS: BMI 30.8
== END | disposition home or self-care (01) ==
LOC: D.NM 12-06 11:30
PROVIDERS: ATTEND Internal Medicine Gastroenterology
DX: R10.13 Epigastric pain (principal); R13.10 Dysphagia, unspecified; R11.10 Vomiting, unspecified